=== PATIENT | female | born 1975 | race Caucasian/White ===

== ENCOUNTER 2022-07-05 15:02 | Emergency (ER) | payer BC ==
[2022-07-05] MEDS ORDERED: Sodium Chloride 0.9% 10 ML Syringe FLUSH PRN (15:47)
[2022-07-05] MEDS ORDERED: Sodium Chloride 0.9% 1,000 ML IV STA ×2 (17:41→21:28)
[2022-07-05] MEDS ORDERED: Tranexamic Acid 1,000 MG in Sodium Chloride 0.9% 100 ML IV SCH (17:45)
== END 2022-07-05 23:08 | disposition home or self-care (01) ==
LOC: JD.ED 15:02
DX: N93.8 Other specified abnormal uterine and vaginal bleeding (principal); Z91.040 Latex allergy status; Z91.048 Other nonmedicinal substance allergy status
CPT/HCPCS: 36415; 76830; 80053; 81001; 84703; 85025; 86850; 86900; 86901; 96361; 96374; 99284; J3490; J7030